=== PATIENT | female | born 1995 | race American Indian/Alaskan Native ===

== ENCOUNTER 2020-03-09 08:46 | Emergency (ER) | payer MEDICAID ==
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
--- NOTE | 2020-03-09 17:28 | Emergency Department Report ---
Eye Injury/Foreign Body - HPI Duration: 2 Days Eye Location: Left Severity: Mild Tetanus Status: Up to Date Eye Symptoms: Eye Pain: Yes, Blurred Vision: Yes, Eye Redness: Yes, Grinding/Hammering Metal: No, Used Eye Protection: No, Contact Lens Use: No, Recalls Injury: No, Photophobia: Yes Other History: This is a 24-year-old female with no prior medical conditions who presents the ED complaining of left eye pain and some irritation that started about 2 days ago. Patient states that she feels like her left eye is irritated. She denies any foreign body or object in eye. She denies trauma to the eyes or loss of vision. ED Review of Systems ROS: Stated complaint: EYE PAIN Other details as noted in HPI Comment: All other systems reviewed and negative ED Past Medical Hx - Past Medical History Previous Medical History?: Yes Hx Asthma: Yes - Surgical History Past Surgical History?: Yes Additional Surgical History: - Social History Smoking Status: Current Every Day Smoker Substance Use Type: Alcohol, Marijuana - Medications Home Medications: Home Medications Medication Instructions Recorded Confirmed Last Taken Type Ketorolac Tromethamine [Ketorolac 1 - 2 drops OP BID #5 ml 03/09/20 Unknown Rx Tromethamine 0.4% opth soln] Tobramycin 0.3% [Tobrex] 1 drop OP Q8HR #1 bottle 03/09/20 Unknown Rx Eye Injury Exam - Exam General: Vital signs noted. No distress. Alert and acting appropriately. Vision is intact bilaterally, PERRLA, no corneal abrasion, no fluorescein uptake No orbital edema or erythema or trauma ED Course Vital Signs 03/09/20 08:49 Temperature 98.1 F Pulse Rate 91 H Respiratory 18 Rate Blood Pressure 139/90 O2 Sat by Pulse 99 Oximetry ED Medical Decision Making - Medical Decision Making 24-year-old female presents with left eye conjunctivitis ED course: newsome lamp test shows no corneal abrasion. discussed this with the patient. Discussed the patient will be going home on antibiotic eyedrops to apply 4-5 times a day I discussed the patient we'll give her hand sample maker referral if needed he'll follow-up if symptoms persist. I discussed the patient is new or worsening symptoms to return to ED immediately Patient's vital signs are stable he's in no distress. Patient is vision is intact, visual acuity test performed, within normal limits. Discussed the patient to follow up with her primary care physician in 3-5 days. Critical care attestation.: If time is entered above; I have spent that time in minutes in the direct care of this critically ill patient, excluding procedure time. ED Disposition Clinical Impression: Conjunctivitis Disposition: [id number] TO HOME OR SELFCARE Is pt being admited?: No Does the pt Need Aspirin: No Condition: Stable Instructions: Conjunctivitis (ED), Corneal Abrasion (ED) Additional Instructions: Make sure to follow up with the primary care physician as discussed. Take all your medications as you've been prescribed. If you have any worsening symptoms or develop new symptoms please return to ED immediately. Prescriptions: Ketorolac Tromethamine [Ketorolac Tromethamine 0.4% opth soln] 1 - 2 drops OP BID #5 ml Tobramycin 0.3% [Tobrex] 1 drop OP Q8HR #1 bottle Referrals: PRIMARY CAREMD [Primary Care Provider] - 3-[address] [facility] [Outside] - 3-[address] [facility] [place] [Outside] - 3-5 Days TOO DORADO MD [Staff Physician] - 3-5 Days LOLIS CASTANON MD [Staff Physician] - 3-5 Days ADOLPH TORRES MD [Staff Physician] - 3-5 Days Forms: Accompanied Note, Work/School Release Form(ED) Time of Disposition: 17:28
[2020-03-09 17:52] VITALS: BP 130/68
== END 2020-03-09 17:52 | disposition home or self-care (01) ==
LOC: ED 08:46
DX: H10.9 Unspecified conjunctivitis (principal); J45.909 Unspecified asthma, uncomplicated; F17.200 Nicotine dependence, unspecified, uncomplicated; F12.10 Cannabis abuse, uncomplicated; Z98.890 Other specified postprocedural states; Z79.899 Other long term (current) drug therapy; Z88.8 Allergy status to other drugs, medicaments and biological substances
CPT/HCPCS: 99282; 99283